=== PATIENT | male | born 1970 | race Caucasian/White ===

== ENCOUNTER 2019-09-28 21:25 | Observation (INO) ==
[2019-09-28 21:51] LABS: Anion Gap 9.8 mEq/L (5-15); Basophils # 0.1 K/mm3 (0-0.2); Basophils % 0.6 % (0.1-2.0); Blood Urea Nitrogen 17 mg/dL (7-18); Calcium 8.7 mg/dL (8.5-10.1); Carbon Dioxide 30 mmol/L (21.0-32.0); Chloride 103 mmol/L (98-107); Eosinophils # 0.5 K/mm3 (0.0-0.4); Glucose 118 mg/dL (74-106); Hematocrit 49.6 % (42.0-52.0); Hemoglobin 16.8 g/dL (14.1-18.0); Lymphocytes # 2.6 K/mm3 (0.7-4.5); Lymphocytes % 20.8 % (10-50); Mean Corpuscular HGB Conc 33.9 g/dL (31.8-35.4); Mean Corpuscular Volume 94.3 fl (80-94); Mean Platelet Volume 8.3 fl (7.4-10.4); Monocytes # 0.7 K/mm3 (0.1-1.0); Monocytes % 5.7 % (1.7-9.3); Neutrophils # 8.6 K/mm3 (1.8-7.8); Neutrophils % 68.9 % (37.0-80.0); Platelet Count 253 K/mm3 (142-424); Red Blood Count 5.26 M/mm3 (4.60-6.20); Red Cell Distribution Width 12.7 % (11.5-17.5); Sodium 139 mmol/L (136-145); White Blood Count 12.5 K/mm3 (4.8-10.8)
--- NOTE | 2019-09-28 22:31 | Emergency Department Note ---
ED Disposition Clinical Impression: Chest pain Qualifiers: Chest pain type: precordial pain Qualified Code(s): R07.2 - Precordial pain Obesity Qualifiers: Obesity type: due to excess calories Obesity classification: adult class 3 (BMI >= 40) Serious obesity comorbidity presence: with serious comorbidity Body mass index: BMI 40.0-44.9 Qualified Code(s): E66.01 - Morbid (severe) obesity due to excess calories; Z68.41 - Body mass index (BMI) 40.0-44.9, adult Disposition: Admitted as Observation Condition on Discharge: Good Referrals: Provider,Referral, [Primary Care Provider] - - Critical Care Critical Care Time: No Attestation: On 09/28/19, the high probability of a clinically significant, sudden or life threatening deterioration of the following system(s) required my full and direct attention, intervention and personal management. The time I documented below is in addition to time spent performing reported procedures but includes the following listed in this critical care notation. Medical Decision Making - Medical Records Medical records reviewed: Yes: I reviewed the patient's medical records. - Dashawn Inquiry Pt receiving controlled substance: No Vital Signs: 09/28/19 21:26 09/28/19 21:56 Temperature 97.8 F Temperature Source Oral Pulse Rate [Right Brachial] 74 76 Respiratory Rate 20 20 Blood Pressure [Right Arm] 139/82 121/64 Blood Pressure Mean [Right Arm] 101 83 Blood Pressure Source [Right Arm] Automatic Cuff Automatic Cuff Blood Pressure Position [Right Arm] Supine Sitting 02 Sat by Pulse Oximetry 95 96 Oxygen Delivery Method Room Air Room Air - Lab Data Lab results reviewed: Yes: I reviewed the patient's lab results. Lab Results 09/28/19 21:25: WBC 12.5 H, RBC 5.26, Hgb 16.8, Hct 49.6, MCV 94.3 H, MCH 31.9 H , MCHC 33.9, RDW 12.7, Plt Count 253, MPV 8.3, Neut % (Auto) 68.9, Lymph % (Auto) 20.8, Harney % (Auto) 5.7, Eos % (Auto) 4.0, Baso % (Auto) 0.6, Neut # (Auto) 8.6 H, Lymph # (Auto) 2.6, Harney # (Auto) 0.7, Eos # (Auto) 0.5 H, Baso # (Auto) 0.1 09/28/19 21:25: Sodium 139, Potassium 3.8, Chloride 103, Carbon Dioxide 30, Anion Gap 9.8, BUN 17, Creatinine 1.03, Estimated Creat Clear 84, Estimated GFR 77, Est GFR ( Amer) 93, Glucose 118 H, Calcium 8.7, Troponin I < 0.02 Result diagrams: 09/28/19 21:25 09/28/19 21:25 Orders (Tests/Meds): ED MEDICATIONS Generic Name Dose Route Start Last Admin Trade Name Freq PRN Reason Stop Dose Admin Sodium Chloride 1,000 mls @ 999 mls/hr 09/28/19 22:00 09/28/19 21:54 Sod Chlor 0.9% 1000ml Bag IV 09/28/19 23:00 999 mls/hr .Q1H1M EDWINA Administration Discontinued Medications Generic Name Dose Route Start Last Admin Trade Name Freq PRN Reason Stop Dose Admin Aspirin 324 mg 09/28/19 21:33 09/28/19 21:38 Aspirin 81mg Chewable Tablet PO 09/28/19 21:34 324 mg ONCE ONE Administration Nitroglycerin 0.4 mg 09/28/19 21:33 09/28/19 21:38 Nitrostat 0.4mg Sl Tablet SL 09/28/19 21:34 0.4 mg ONCE ONE Administration Nitroglycerin 1 gm 09/28/19 22:29 09/28/19 22:30 Nitroglycerin 1 Inch Oint Udp TD 09/28/19 22:30 1 gm ONCE ONE Administration ORDERS Category Date Time Status XR chest 2V Stat Exams 09/28/19 21:33 Taken Hemoglobin A1C Stat Lab 09/28/19 21:25 Received Troponin I Q3H Lab 09/29/19 00:45 Ordered Troponin I Q3H Lab 09/29/19 03:45 Ordered ECG Request by /Grace Stat Y 09/28/19 21:33 Ordered - Radiology Data #1 Image(s): Chest Image Reviewed: Yes I reviewed the patient's radiology image Preliminary Findings: Abnormal (cm) - ECG Data Tracing #1 Normal Sinus Rhythm: Yes Ischemic changes: non-specific ST-T wave changes Chest Pain HPI - General Chief Complaint: Chest Pain Stated Complaint: CHEST PAIN Time Seen by Provider: 09/28/19 22:29 Mode of Arrival: Ambulatory Source of Information: Patient, Spouse, Medical Record Limitations: No Limitations Description of Symptoms (Recalled from ER Triage Doc. by RN): AGUS PRESENTS TO TX 7 C/O CHEST PAIN THAT STARTED AROUND 2100. STATES PAIN IS IN THE CENTER OF HIS CHEST AND DOES NOT RADIATE ANYWHERE. REPORTS PAIN INITIALLY 4/10, BUT DOWN TO 2/10 UPON ARRIVAL. DENIES CARDIAC HISTORY. - History of Present Illness HPI narrative: pt with new onset of midsternal chest pain which occurred at rest and lasted about 20 min - different than gerd pain MD complaint: chest pain indicative of cardiac Onset (ago): hour(s) Duration: now resolved Activity at onset: during rest Pain location: substernal Quality: tightness Relieving factors: nitroglycerin Risk Factors for CAD: Family Hx of CAD Treatments prior to or on arrival for Cardiac Chest Pain: none - RICARDO Score for Non-Stemi Age of Patient: 40-49 years old Heart Rate: 70-89 bpm Systolic Blood Pressure: 120-139 mmhg Serum Creatinine: 0.80-1.19 mg/dl CHF Killip Class: I-No CHF Other Risk Factors: None Non-Stemi Risk Score: 75 - Related Data Home Medications Medication Instructions Recorded Confirmed No Known Home Medications 09/28/19 09/28/19 Allergies Allergy/AdvReac Type Severity Reaction Status Date / Time No Known Allergies Allergy Verified 11/25/18 09:32 [facility] History - Hepatitis A Screen Drug use history?: No High risk sexual behaviors?: No History of sexually transmitted infection?: No Currently employed?: No Childcare worker?: No Do you have indoor plumbing?: Yes Do you have electricity?: Yes Attestation statement:: This patient has been screened for Hepatitis A risk factors. I have reviewed the patient's past medical history: Yes - Social History Smoking Status: Never smoker Alcohol Intake: never Substance Use Type: denies use Occupational Status: employed Housing: house Household Members: spouse ROS Obtained: Yes All systems reviewed & no additional complaints - Constitutional Constitutional: Denies fever(s) - Eyes Eyes: Denies change in vision - ENT Ears, Nose, Mouth, and Throat: Denies sore throat - Cardiovascular Cardiovascular: Reports chest pain, Denies dyspnea - Respiratory Respiratory: No cough - Gastrointestinal Gastrointestingal: Denies: abdominal pain - Genitourinary Male Genitourinary: Denies hematuria - Musculoskeletal Musculoskeletal: Denies joint pain, Denies joint swelling - Integumentary/Breasts Skin/Breast: Denies rash - Neurologic Neurologic: Denies seizure-like activity Physical Exam - General General appearance: alert - Head Head exam: normocephalic - Eye Eye exam: Present: PERRL, EOMI - ENT ENT exam: Present: mucous membranes moist - Neck Neck exam: Present: trachea midline - Respiratory Respiratory exam: Present: normal lung sounds bilaterally. Absent: respiratory distress - Cardiovascular Cardiovascular exam: Present: regular rate, systolic murmur - Abdominal Exam Abdominal exam: Present: soft. Absent: tenderness - Extremities Exam Extremities exam: Present: full ROM - Neurological Exam Neurological exam: Present: alert, oriented X3, CN II-XII intact - Psychiatric Psychiatric exam: Present: normal affect - Skin Skin exam: Absent: rash
[2019-09-29 04:21] LABS: Basophils # 0.1 K/mm3 (0-0.2); Basophils % 0.5 % (0.1-2.0); Eosinophils # 0.4 K/mm3 (0.0-0.4); Eosinophils % 4.2 % (0.1-12.0); Hematocrit 47.4 % (42.0-52.0); Hemoglobin 15.6 g/dL (14.1-18.0); Lymphocytes # 2.3 K/mm3 (0.7-4.5); Lymphocytes % 24.5 % (10-50); Mean Corpuscular HGB Conc 32.9 g/dL (31.8-35.4); Mean Corpuscular Volume 95.6 fl (80-94); Mean Platelet Volume 8.1 fl (7.4-10.4); Monocytes # 0.6 K/mm3 (0.1-1.0); Monocytes % 6.4 % (1.7-9.3); Neutrophils % 64.3 % (37.0-80.0); Platelet Count 233 K/mm3 (142-424); Red Blood Count 4.96 M/mm3 (4.60-6.20); Red Cell Distribution Width 12.7 % (11.5-17.5); White Blood Count 9.3 K/mm3 (4.8-10.8)
[2019-09-29 04:30] LABS: Anion Gap 11.1 mEq/L (5-15); Calcium 7.9 mg/dL (8.5-10.1); Chol/HDL Ratio 4.7 (1-3.5)
--- NOTE | 2019-09-29 07:25 | Pharmacy Consult Notes ---
[facility] Pharmacy VTE Monitoring - Patient Demographics Admission date: 09/28/19 Report Date: 09/29/19 Time: 07:25 Allergies/Adverse Reactions: Patient Allergies No Known Allergies Allergy (Verified 11/25/18 09:32) Height: 1.73 m Weight: 125.191 kg Patient Problems: Current Active Problems Chest pain (Acute) Obesity (Acute) - VTE Risk Labs: VTE Related Lab Results Hgb 15.6 g/dL (14.1-18.0) 09/29/19 03:55 Hct 47.4 % (42.0-52.0) 09/29/19 03:55 Plt Count 233 K/mm3 (142-424) 09/29/19 03:55 BUN 16 mg/dL (7-18) 09/29/19 03:55 Creatinine 1.04 mg/dL (0.70-1.30) 09/29/19 03:55 Estimated Creat Clear 83 mL/min (50-200) 09/29/19 03:55 Was VTE Risk Assessment Performed: Yes VTE Score: 2 VTE Risk Level: Low Risk Clinical Trial Participant: No - Prophylaxis VTE Prophylaxis Ordered?: Yes Types of VTE Prophylaxis: TEDS Knee High
--- NOTE | 2019-09-29 09:25 | Consult Report ---
History of Present Illness Consult date: 09/29/19 Requesting physician: Rex Lord Consult reason: chest pain Chief complaint: Chest pain History of present illness: This is a 49-year-old gentleman who presented to the hospital with complaints of chest pain. The patient reports that he has had chest pain intermittently in the past but nothing as severe as yesterday. He states that he was having a pressure sensation in the substernal aspect of his chest. He states that the pain itself really did not radiate but he felt heavy from about the substernal area of his chest all the way up to his head. The patient states that the chest pressure was a 5 out of 10 at the worst. It was associated with nausea. He denies any associated shortness of breath or diaphoresis. The patient states that his symptoms lasted for approximately 30 minutes or more before he decided to come into the emergency department. The patient states that in the past none of his episodes of chest pain have ever lasted that long. He states that usually last a few minutes and then resolved. He states that he does have a history of GERD as well and this pain felt completely different than that. He denies any fever, chills, vomiting, diarrhea, PND, orthopnea, shortness of breath or edema. Nothing worsened his chest pressure and it did not improve until he was given aspirin and nitroglycerin here in the emergency department. This morning he is currently chest pain-free. The patient denies hypertension, hyperlipidemia and diabetes. He has never smoked. He denies a family history of heart disease. [facility] History I have reviewed the patient's past medical history: Yes Medical History: Denies:: Cancer, Diabetes Mellitus Type 1, Diabetes Mellitus Type 2, MRSA *Have you ever received a pneumonia vaccine?: No *Have you received a flu vaccine this season?: Yes Other Surgeries: Yes: Colonoscopy, EGD, Hernia Repair Amputation: No - *Social History Educational Level: Completed High School Smoking Status: Never smoker Alcohol Intake: current Alcohol Intake Frequency:: holidays/special occasions only Substance Use Type: denies use *Occupational Status:: employed Housing: house Household Members: spouse *Travel in the last 8 weeks: Inside the [facility] Family Hx:: Cancer, Kidney Disease, Thyroid Disorder Meds Home Medications Medication Instructions Recorded Confirmed Type No Known Home Medications 09/28/19 09/28/19 History Allergies Allergy/AdvReac Type Severity Reaction Status Date / Time No Known Allergies Allergy Verified 11/25/18 09:32 Review of Systems - Review of Systems Review of systems:: pertinent systems reviewed and negative unless documented below - *Cardiovascular Reports chest pain, Reports chest pain at rest, Reports chest pain with activity - *Gastrointestinal Reports nausea - *Neurologic Denies seizure-like activity Exam Vital signs and Labs for Last 24 Hours: Temp Pulse Resp BP Pulse Ox 98.3 F 70 19 111/61 98 09/29/19 07:39 09/29/19 07:39 09/29/19 07:39 09/29/19 07:39 09/29/19 07:39 Laboratory Results - last 24 hr 09/28/19 21:25: WBC 12.5 H, RBC 5.26, Hgb 16.8, Hct 49.6, MCV 94.3 H, MCH 31.9 H , MCHC 33.9, RDW 12.7, Plt Count 253, MPV 8.3, Neut % (Auto) 68.9, Lymph % (Auto) 20.8, Hayes % (Auto) 5.7, Eos % (Auto) 4.0, Baso % (Auto) 0.6, Neut # (Auto) 8.6 H, Lymph # (Auto) 2.6, Hayes # (Auto) 0.7, Eos # (Auto) 0.5 H, Baso # (Auto) 0.1 09/28/19 21:25: Sodium 139, Potassium 3.8, Chloride 103, Carbon Dioxide 30, Anion Gap 9.8, BUN 17, Creatinine 1.03, Estimated Creat Clear 84, Estimated GFR 77, Est GFR ( Amer) 93, Glucose 118 H, Calcium 8.7, Troponin I < 0.02 09/28/19 21:25: Hemoglobin A1c 5.6 09/29/19 00:40: Troponin I < 0.02 09/29/19 03:55: WBC 9.3 D, RBC 4.96, Hgb 15.6, Hct 47.4, MCV 95.6 H, MCH 31.5 H , MCHC 32.9, RDW 12.7, Plt Count 233, MPV 8.1, Neut % (Auto) 64.3, Lymph % (Auto) 24.5, Hayes % (Auto) 6.4, Eos % (Auto) 4.2, Baso % (Auto) 0.5, Neut # (Auto) 6.0, Lymph # (Auto) 2.3, Hayes # (Auto) 0.6, Eos # (Auto) 0.4, Baso # (Auto) 0.1 09/29/19 03:55: Sodium 141, Potassium 4.1, Chloride 106, Carbon Dioxide 28, Anion Gap 11.1, BUN 16, Creatinine 1.04, Estimated Creat Clear 83, Estimated GFR 76, Est GFR ( Amer) 92, Glucose 103, Calcium 7.9 L, Magnesium 1.8, Triglycerides 83, Cholesterol 142, LDL Cholesterol 95, VLDL Cholesterol 17, HDL Cholesterol 30, Cholesterol/HDL Ratio 4.7 H 09/29/19 03:55: Troponin I < 0.02 I & O for Last 24 hours: Intake & Output 09/26/19 09/27/19 09/28/19 09/29/19 23:59 23:59 23:59 23:59 Weight 275 lb 276 lb Narrative: EKG is sinus rhythm with a rate of 72. - Constitutional no acute distress, morbidly obese - *Routine HEENT Exam Head: Present: normocephalic, atraumatic Eye: Present: EOMI, PERRL ENT: Present: mucous membranes moist - *Routine Neck Exam Present: supple, full ROM, normal carotid upstroke. Absent: JVD, carotid bruit, lymphadenopathy - *Routine Respiratory Exam Present: CTA bilaterally - *Routine Cardiovascular Exam Present: RRR, Normal S1, Normal S2. Absent: murmur - *Routine Abdominal Exam Present: soft, normoactive bowel sounds. Absent: tenderness, distended - *Routine Extremities Exam Present: full ROM, pulses intact, normal capillary refill. Absent: cyanosis, clubbing, edema - *Routine Skin Exam Present: intact, warm. Absent: erythema, rash - *Routine Neurological Exam Present: alert, oriented X3, CN II-XII intact. Absent: sensory deficit, motor deficit - Routine Psychiatric Exam Present: normal affect, normal thought process - Detailed Eye Exam Eyelids: Left normal inspection Assessment and Plan (1) Nausea Current visit: Yes Status: Acute Category: Medical Code(s): R11.0 - Nausea (2) Morbidly obese Current visit: Yes Status: Acute Category: Medical Code(s): E66.01 - Morbid (severe) obesity due to excess calories (3) Chest pain Current visit: Yes Status: Acute Qualifiers: Chest pain type: precordial pain Qualified Code(s): R07.2 - Precordial pain Category: Medical Code(s): R07.9 - Chest pain, unspecified - Assessment and plan all Dx Assessment and Plan for all problems:: Plan: 1. The patient was admitted to the hospital with chest pain. He has ruled out for an LA with negative troponins. The patient's chest pain did resolve with aspirin and nitroglycerin. He has been having the chest pain intermittently for quite some time but it significantly worsened yesterday and that is why he came to the emergency department. We will set the patient up for a GXT Myoview stress test to rule out ischemia. 2. His echocardiogram is currently pending. 3. His blood pressure is excellent. 4. His LDL goal is less than 100. His LDL is 95. 5. Weight loss is highly encouraged and advised. 6. Aspirin 81 mg daily. 7. Further recommendations will be made pending the patient's response to treatment and the results of his Myoview stress test and echocardiogram today. Thank you for the opportunity to help participate in the care of this patient.
--- NOTE | 2019-09-29 18:05 | History & Physical Report ---
*Admission Date: 09/28/19 *Chief complaint: chest pain *History of present illness: 49-year-old male presented to the ED with complaints of chest pain for 30 mins. Patient reports that he has had chest pain intermittently in the past but nothing as severe as yesterday. He states that he was having a pressure sensation in the substernal aspect of his chest. The patient states that the chest pressure was a 5 out of 10 at the worst and associated with nausea. He denies any fever, chills, vomiting, diarrhea, PND, orthopnea, shortness of breath or edema. Nothing worsened his chest pressure and it did not improve until he was given aspirin and nitroglycerin here in the emergency department. Patient admitted and cardiac work up with cardiology consult. [facility] History I have reviewed the patient's past medical history: Yes Medical History: Denies:: Cancer, Diabetes Mellitus Type 1, Diabetes Mellitus Type 2, MRSA *Have you ever received a pneumonia vaccine?: No *Have you received a flu vaccine this season?: Yes Other Surgeries: Yes: Colonoscopy, EGD, Hernia Repair Amputation: No - *Social History Educational Level: Completed High School Smoking Status: Never smoker Alcohol Intake: current Alcohol Intake Frequency:: holidays/special occasions only Substance Use Type: denies use *Occupational Status:: employed Housing: house Household Members: spouse *Travel in the last 8 weeks: Inside the [place] Family Hx:: Cancer, Kidney Disease, Thyroid Disorder Review of Systems - Review of Systems Review of systems:: pertinent systems reviewed and negative unless documented below - Constitutional Denies fever(s) - Eyes Denies change in vision - ENT Denies change in voice - *Cardiovascular Reports chest pain, Reports chest pain at rest, Reports chest pain with activity, Denies shortness of breath with activity - *Respiratory Denies chest congestion, Denies shortness of breath - *Gastrointestinal Reports nausea, Denies vomiting - *Genitourinary Denies urinary frequency - *Musculoskeletal Denies body aches, Denies neck pain - Integumentary/Breasts Denies rash - *Neurologic Denies dizziness, Denies seizure-like activity - Psychiatric Denies anxiety - Endocrine Denies flushing - Hematologic/Lymphatic Denies enlarged lymph nodes - Allergic/Immunologic Denies itchy eyes Meds Home Medications Medication Instructions Recorded Confirmed Type No Known Home Medications 09/28/19 09/28/19 History Allergies Allergy/AdvReac Type Severity Reaction Status Date / Time No Known Allergies Allergy Verified 11/25/18 09:32 Exam Vital signs and Labs for Last 24 Hours: Temp Pulse Resp BP Pulse Ox 98.7 F 89 17 121/70 95 09/29/19 15:43 09/29/19 15:43 09/29/19 15:43 09/29/19 15:43 09/29/19 15:43 Laboratory Results - last 24 hr 09/28/19 21:25: WBC 12.5 H, RBC 5.26, Hgb 16.8, Hct 49.6, MCV 94.3 H, MCH 31.9 H , MCHC 33.9, RDW 12.7, Plt Count 253, MPV 8.3, Neut % (Auto) 68.9, Lymph % (Auto) 20.8, Richardson % (Auto) 5.7, Eos % (Auto) 4.0, Baso % (Auto) 0.6, Neut # (Auto) 8.6 H, Lymph # (Auto) 2.6, Richardson # (Auto) 0.7, Eos # (Auto) 0.5 H, Baso # (Auto) 0.1 09/28/19 21:25: Sodium 139, Potassium 3.8, Chloride 103, Carbon Dioxide 30, Anio n Gap 9.8, BUN 17, Creatinine 1.03, Estimated Creat Clear 84, Estimated GFR 77, Est GFR ( Amer) 93, Glucose 118 H, Calcium 8.7, Troponin I < 0.02 09/28/19 21:25: Hemoglobin A1c 5.6 09/29/19 00:40: Troponin I < 0.02 09/29/19 03:55: WBC 9.3 D, RBC 4.96, Hgb 15.6, Hct 47.4, MCV 95.6 H, MCH 31.5 H , MCHC 32.9, RDW 12.7, Plt Count 233, MPV 8.1, Neut % (Auto) 64.3, Lymph % (Auto) 24.5, Richardson % (Auto) 6.4, Eos % (Auto) 4.2, Baso % (Auto) 0.5, Neut # (Auto) 6.0, Lymph # (Auto) 2.3, Richardson # (Auto) 0.6, Eos # (Auto) 0.4, Baso # (Auto) 0.1 09/29/19 03:55: Sodium 141, Potassium 4.1, Chloride 106, Carbon Dioxide 28, Anion Gap 11.1, BUN 16, Creatinine 1.04, Estimated Creat Clear 83, Estimated GFR 76, Est GFR ( Amer) 92, Glucose 103, Calcium 7.9 L, Magnesium 1.8, Triglycerides 83, Cholesterol 142, LDL Cholesterol 95, VLDL Cholesterol 17, HDL Cholesterol 30, Cholesterol/HDL Ratio 4.7 H 09/29/19 03:55: Troponin I < 0.02 I & O for Last 24 hours: Intake & Output 09/27/19 09/28/19 09/29/19 09/30/19 11:59 11:59 11:59 11:59 Intake Total 752 / 752 Balance 752 / 752 Weight 276 lb 275 lb 15.982 oz - Constitutional no acute distress - *Routine HEENT Exam Head: Present: normocephalic Eye: Present: PERRL ENT: Present: mucous membranes moist - *Routine Neck Exam Present: supple. Absent: lymphadenopathy - *Routine Respiratory Exam Present: CTA bilaterally - *Routine Cardiovascular Exam Present: RRR - *Routine Abdominal Exam Present: soft, normoactive bowel sounds. Absent: tenderness - *Routine Extremities Exam Present: full ROM. Absent: cyanosis, clubbing, edema - *Routine Skin Exam Present: warm. Absent: rash - *Routine Neurological Exam Present: alert, oriented X3 - Routine Psychiatric Exam Present: normal affect Assessment and Plan (1) Nausea Current visit: Yes Status: Acute Category: Medical Code(s): R11.0 - Nausea (2) Morbidly obese Current visit: Yes Status: Acute Category: Medical Code(s): E66.01 - Morbid (severe) obesity due to excess calories (3) Chest pain Current visit: Yes Status: Acute Qualifiers: Chest pain type: precordial pain Qualified Code(s): R07.2 - Precordial pain Category: Medical Code(s): R07.9 - Chest pain, unspecified - Assessment and plan all Dx Assessment and Plan for all problems:: rounded with Dr Lord all orders per lawson
--- NOTE | 2019-09-30 08:17 | Progress Note ---
Subjective Date: 09/30/19 Time: 08:14 Principal diagnosis: chest pain Interval history: 49-year-old white male admitted for chest pain underwent stress testing yesterday showing ischemia in the apex with normal ejection fraction. Patient has had no chest pain overnight. Discussed results of stress test and plans for cardiac catheterization with patient and . Patient both agree to proceed in this fashion. Exam Vital signs and Labs for Last 24 Hours: Temp Pulse Resp BP Pulse Ox 98.5 F 85 15 126/68 95 09/30/19 04:00 09/30/19 04:00 09/30/19 04:00 09/30/19 04:00 09/30/19 04:00 I & O for Last 24 hours: Intake & Output 09/27/19 09/28/19 09/29/19 09/30/19 11:59 11:59 11:59 11:59 Intake Total 1112 / 1112 Output Total 800 / 800 Balance 312 / 312 Weight 276 lb 273 lb 2 oz - *Routine Respiratory Exam Present: CTA bilaterally. Absent: accessory muscle use, rales, rhonchi, wheezes - *Routine Cardiovascular Exam Present: RRR. Absent: murmur, gallop, rubs - *Routine Extremities Exam Absent: edema, calf tenderness - *Routine Neurological Exam Present: alert, oriented X3, moving all extremities Progress Note: A&P (1) Chest pain Status: Acute Current Visit: Yes (2) Nausea Status: Acute Current Visit: Yes (3) Morbidly obese Status: Acute Current Visit: Yes Assessment and Plan for All Diagnoses:: 1. Plan to proceed with left heart catheterization today. 2. Further recommendations to follow.
--- NOTE | 2019-09-30 09:17 | Electrocardiograph Report ---
APPROVED REPORT Exam: Resting ECG HR:72 bpm ECG Measurements Heart Rate 72 AXES MT 168 P 78 QRSd 90 QRS -27 QT 376 T52 QTc 411 <Conclusion> Normal sinus rhythm Low voltage QRS Borderline ECG Electronically signed by : Matias Blue, 09/30/2019 09:17:25
--- NOTE | 2019-09-30 11:47 | Discharge Summary ---
General - General Admission date:: 09/28/19 Discharge date: 09/30/19 HPI HPI: 49-year-old male presented to the ED with complaints of chest pain for 30 mins. Patient reports that he has had chest pain intermittently in the past but nothing as severe as yesterday. He states that he was having a pressure sensation in the substernal aspect of his chest. The patient states that the chest pressure was a 5 out of 10 at the worst and associated with nausea. He denies any fever, chills, vomiting, diarrhea, PND, orthopnea, shortness of breath or edema. Nothing worsened his chest pressure and it did not improve until he was given aspirin and nitroglycerin here in the emergency department. Patient admitted and cardiac work up with cardiology consult (Per Ibrahima LAGUNAS). Hospital Course Hospital Course: 49-year-old male patient sitting up in bed this morning respirations easy even, denies any chest pain through the night. Informed he will have a cardiac catheterization today and will discuss results after procedure. 49-year-old male presented to the ED with complaints of chest pain for 30 mins. Patient reports that he has had chest pain intermittently in the past but nothing as severe as yesterday. He states that he was having a pressure sensation in the substernal aspect of his chest. The patient states that the chest pressure was a 5 out of 10 at the worst and associated with nausea. He denies any fever, chills, vomiting, diarrhea, PND, orthopnea, shortness of breath or edema. Nothing worsened his chest pressure and it did not improve until he was given aspirin and nitroglycerin here in the emergency department. Patient admitted and cardiac work up with cardiology consult. 09/29 Strees Test: Conclusion: Normal EF of 62% Ischemic changes in the apex Electronically signed by : Jose 09/30 Card Cath: IMPRESSION Mild luminal irregularities combined with slow flow down the LAD all consistent with endothelial dysfunction likely stemming from diastolic dysfunction as evidenced by moderate to severely elevated LVEDP Normal ejection fraction Elevated LVEDP PLAN 1. Treatment of diastolic dysfunction with loop diuretics 2. Recommend sleep study 3. Risk factor modification Electronically signed by : Dr. Drummond Cards Recommendations: Left heart cath shows mild luminal irregularities with elevated left ventricular end-diastolic pressure consistent with diastolic dysfunction. Okay for discharge home from cardiology standpoint Medical recommendations Lasix 40 mg daily Aldactone 25 mg daily Atorvastatin 40 mg daily Aspirin 81 mg daily Follow-up in the office in 2 weeks. Objective Vital signs: Temp Pulse Resp BP Pulse Ox 98.2 F 82 18 109/82 L 96 09/30/19 08:00 09/30/19 10:25 09/30/19 10:25 09/30/19 10:25 09/30/19 10:25 no acute distress - *Routine HEENT Exam Head: Present: normocephalic, atraumatic. Absent: tenderness of temporal artery Eye: Present: EOMI, PERRL, normal accommodation. Absent: periorbital tenderness ENT: Present: mucous membranes moist. Absent: sinus tenderness - *Routine Neck Exam Present: full ROM, trachea midline. Absent: JVD, tracheal deviation - *Routine Respiratory Exam Present: accessory muscle use, CTA bilaterally. Absent: crackles - *Routine Cardiovascular Exam Present: RRR - *Routine Abdominal Exam Present: soft, normoactive bowel sounds. Absent: tenderness, firm - *Routine Extremities Exam Present: full ROM, pulses intact. Absent: cyanosis, calf tenderness - Routine Back/Spine/Pelvis Exam Back/Spine: Present: full ROM. Absent: CVA tenderness - *Routine Skin Exam Present: intact. Absent: cyanosis, erythema - *Routine Neurological Exam Present: alert, oriented X3, CN II-XII intact, altered mental status. Absent: fasciculations - Routine Psychiatric Exam Absent: suicidal ideation, homicidal ideation Results - Additional Comments Rounded w/ Dr. Lord, all orders per Dr. Lord Will D/H Home today F/U in office 2 weerks Cards Recommends: Left heart cath shows mild luminal irregularities with elevated left ventricular end-diastolic pressure consistent with diastolic dysfunction. Okay for discharge home from cardiology standpoint Medical recommendations Lasix 40 mg daily Aldactone 25 mg daily Atorvastatin 40 mg daily Aspirin 81 mg daily Follow-up in the office in 2 weeks. DS: Diagnosis - Discharge Diagnosis (1) Nausea Status: Acute (2) Morbidly obese Status: Acute (3) Chest pain Status: Acute Discharge Plan - Patient Discharge Instructions ACTIVITY: Continue current activity DIET: continue same diet Patient Instructions: DI for Obesity -- Adult, DI for Chest Pain - Follow up Plan Follow up with: Rex Lord MD [Emergency Provider] - 2 weeks Devendra Drummond MD [Staff Physician] - 2 weeks Disposition: Home, Self-Fci Medications: Home Medications Medication Instructions Recorded Confirmed Type No Known Home Medications 09/28/19 09/28/19 History Aspirin [Aspirin 81mg EC Tab] 81 mg PO DAILY 30 Days tablet. 09/30/19 Rx Atorvastatin Calcium [Lipitor 40mg 40 mg PO HS 30 Days tab 09/30/19 Rx Tablet] Furosemide [Lasix 40mg tablet] 40 mg PO DAILY 30 Days tab 09/30/19 Rx Spironolactone [Aldactone 25mg 25 mg PO DAILY 30 Days tab 09/30/19 Rx Tab] Prescriptions/Medication Reconciliation: New Spironolactone [Aldactone 25mg Tab] 25 mg PO DAILY 30 Days tab Aspirin [Aspirin 81mg EC Tab] 81 mg PO DAILY 30 Days tablet. Atorvastatin Calcium [Lipitor 40mg Tablet] 40 mg PO HS 30 Days tab Furosemide [Lasix 40mg tablet] 40 mg PO DAILY 30 Days tab Continued No Known Home Medications - Problem Reconciliation Problems Reviewed?: Yes
--- NOTE | 2019-09-30 15:25 | Cardiology Report ---
APPROVED REPORT Exam: Exercise Treadmill Technologist: josue stanley, Ht: 5 ft 8 in Wt: 278 lbs BSA: 2.35 m2 HR: 74 bpm BP: 134/84 mmHg Indications: CP Medical History Allergies: No known drug allergies Stress Test Details Test: Carlos HR Resting HR: 95 bpmMax Heart Rate (APMHR): 171 bpm Max HR Achieved: 173 bpmTarget HR (85% APMHR): 145 bpm % of APMHR: 101 Recovery HR: 115 bpm BP Resting BP: 127/72 mmHg Max BP: 164/68 mmHg Recovery BP: 143.0/74.0 mmHg ECG Resting ECG: NSR, Low voltage QRS. Clinical Reason for Termination: SOA, Leg fatigue Exercise duration: 07:45 min Highest Stage Achieved: Exercise capacity: 10.1 METs Stress ECG Conclusion No CP. Occ PAC and PVC. Normal ST response to exercise. Normal GXT. Images reported seperately. Test Summary REST.......Sitting REST.......Standing REST04:570.00.095.127/ 72.. Stage 101:0010.01.7120.... Stage 102:0010.01.7126.... Stage 103:0010.01.7127.158/ 75.. Stage 201:0012.02.5132.... Stage 202:0012.02.5136.... Stage 203:0012.02.5144.162/ 74.. Stage 3.......Cardiolite injected Stage 301:0014.03.4155.... Stage 301:4514.03.4158...Stop exercise at 07:45 [id number]:000.00.0126.164/ 68.. [id number]:000.00.0112.164/ 68.. [id number]:000.00.0113.143/ 74.. [id number]:000.00.0109.135/ 82.. [id number]:000.00.0112.131/ 79.. [id number]:200.00.0115.131/ 79.. Electronically signed by : Eren Villagran, 09/30/2019 15:24:49
--- NOTE | 2019-09-30 15:43 | Cardiology Report ---
APPROVED REPORT EXAM: Comprehensive 2D, Doppler, and color-flow Echocardiogram Master Naval Parachutist: Maribel Avitia RT(R) Ht: 5 ft 8 in Wt: 278lbs BSA: 2.35 BP: 121/64 mmHg Indications: Chest Pain 2D Dimensions LVOT 2.27 cm (M/F) 1.5-2.5 M-Mode Dimensions RVDd 3.57 cm (0.9-2.6)LVDd 5.15 cm (3.5-5.7) LVDs 4.21 cm (3.5-5.7)IVSd 1.02 cm (0.6-1.1) PWd 0.79 cm (0.6-1.1)EF (Teich) 37.60% FS 18.30% EDV (Teich) 126.60 mL ESV (Teich) 79.00 mL LV Diastology E/A Ratio 1.03 Mitral Valve MV A Velocity 53.00 (40-130 cm/s) Left Ventricle Left atrium is normal size, left ventricle is normal size, there is no concentric left ventricular hypertrophy, visually estimated ejection fraction 55% with no regional wall motion abnormality. Diastolic parameters are within normal range. Right Ventricle Right atrium and right ventricular normal size and contractility. Aortic Valve Aortic valve is grossly normal, there is no aortic stenosis or aortic insufficiency. Mitral Valve Mitral valve is grossly normal, there is no mitral stenosis, there is mild mitral regurgitation. Tricuspid Valve Tricuspid valve is grossly normal, there is mild tricuspid regurgitation. Tricuspid regurgitation jet velocity is inadequate for calculation of the right ventricular systolic pressure. Pulmonic Valve Pulmonic valve is poorly visualized. Great Vessels Aortic root is normal size. Pericardium No significant pericardial effusion noted Conclusion 1. Normal left ventricular size, preserved left ventricular systolic function, visually estimated ejection fraction 55% with no regional wall motion abnormality. Diastolic parameters are within normal range. 2. Mild mitral and tricuspid regurgitation. 3. No significant pericardial effusion noted. Electronically signed by : Eren Villagran, 09/30/2019 15:41:55
== END 2019-09-30 16:22 | disposition home or self-care (01) ==
LOC: ER 21:25 → 2ND 21:25
PROVIDERS: ADMIT Emergency Medicine; ATTEND Emergency Medicine
CPT/HCPCS: 36415; 71020; 71046; 78452; 80048; 80061; 83036; 83735; 84484; 85025; 93005; 93017; 93306; 93458; 96365; 99152; 99284; A9502; C1725; C1760; C1769; G0378; J1644; Q9967

== ENCOUNTER 2023-12-28 08:47 | Emergency (ER) | payer BC, SELFPAY ==
[2023-12-28 09:05] VITALS: BP 113/74; PULSE 86; RESP 20; TEMP 38.2; O2SAT 97; BMI 39.8
--- NOTE | 2023-12-28 09:13 | ED_ITS ---
Discharge Plan Disposition Patient Disposition: Home, Self-Care Condition: Good Prescriptions Prescriptions: No Action spironolactone 25 mg tablet 25 mg PO DAILY Qty: 30 2RF atorvastatin 40 mg tablet 40 mg PO HS Qty: 30 2RF furosemide 40 mg tablet 40 mg PO DAILY Qty: 30 2RF aspirin 81 mg tablet,delayed release (DR/EC) See Rx Instructions .ROUTE .COMPLEX Qty: 90 0RF Dose Instruction: TAKE 1 TABLET BY MOUTH EVERY DAY Rx Instructions: TAKE 1 TABLET BY MOUTH EVERY DAY Referrals Follow up/Referrals: Liv Carlos MD [Primary Care Provider] - See instructions Activity Restrictions/Add. Instructions Additional Instructions/Restrictions: *Monitor Temp, Over the counter Motrin or Tylenol as directed/as needed Tylenol every 4 hours and Motrin every 6 hours (as long as your family doctor has told you that you can take it) for fever or pain. and straight to ER if unable to lower temp less than 101.0 after medication given *Warm salt water gargles may help to soothe the throat *Throat Lozenges? *Warm fluids like tea with honey may help to soothe the throat? *Sleep elevated *Humidifier/Vaporizer Your throat swab was sent for culture. Those results are typically sent to your primary care. Be sure to follow up in 2-3 days with your family doctor/primary care physician if no improvement so they can review those result and treat if necessary. If you don?t have a primary care doctor, I recommend you get one but in the mean time, you will have to return to a walk in clinic Follow up IMMEDIATELY for new or worsening symptoms or no Noticeable improvement over the next 48-72 hours. 911 for difficulty breathing or swallowing You were tested for today for Upper Respiratory Panel with COVID19 your test result should be back in the next 24hours, you may check your results on the [facility] Clinical Impressions Clinical Impression: URI (upper respiratory infection) Qualifiers: URI type: unspecified URI Qualified Code(s): J06.9 - Acute upper respiratory infection, unspecified Stand Alone Forms Stand Alone Forms: Work/School Release Instructions Patient Instructions: Sore Throat, DI for Fever (Symptom) -- Adult Discharge ED Provider: July Medeiros [facility] [place] HPI General Stated complaint: congestion, body aches, BARNETT, sore throat, fever Mode of Arrival: Ambulatory Source of Information: Patient Limitations: No Limitations Time Seen by Provider: 12/28/23 09:13 Description of Symptoms (Recalled from Triage Doc. by RN): PATIENT C/O FEVER, SORE THROAT, HEADACHE, BODY ACHES, RUNNY NOSE AND CONGESTION SINCE FRIDAY NIGHT HEENT Symptoms (Recalled from RN notes): Yes Resp Symptoms (Recalled from RN notes): No Skin Symptoms (Recalled from RN notes): No MS Symptoms (Recalled from RN notes): No Functional Status (Recalled from RN notes): WNL History of Present Illness Provider Complaint: Patient states that he started feeling bad on Friday States that he has been having sore throat, fever, chills, body aches, headache and runny nose States that he has continued to feel bad over the weekend and this morning he still had a little fever so he came in to get checked Related Data Previous Rx's Medication Instructions Recorded atorvastatin 40 mg tablet 40 mg PO HS #30 tabs 10/23/19 furosemide 40 mg tablet 40 mg PO DAILY #30 tabs 10/23/19 spironolactone 25 mg tablet 25 mg PO DAILY #30 tabs 10/23/19 aspirin 81 mg tablet,delayed See Rx Instructions .Route 10/25/19 release .COMPLEX #90 tabs Allergies Allergy/AdvReac Type Severity Reaction Status Date / Time No Known Allergies Allergy Verified 10/15/19 11:54 Worker's Comp Is this a Worker's Comp case?: No [facility] Disclaimer: The information contained in this section may have been updated after the patient was seen, as this information can be updated by other users. Medical History (Updated 12/28/23 @ 09:26 by July Medeiros APRN) Dyspnea CAD (coronary artery disease) Abnormal EKG Diastolic dysfunction Sinus tachycardia Social History Smoking Status: Never smoker alcohol intake: never substance use type: denies use current occupational status: employed Travel in the last 8 weeks: Inside the [place] household members: spouse housing: house caffeine: Yes ROS Obtained: Yes All systems reviewed & no additional complaints except as docu mented and Yes Systems reviewed as appropriate & no additional complaints except as documented Constitutional Constitutional: Reports system reviewed and no additional complaints, except as documented, Reports as per HPI, Reports body ache, Reports chills, Reports fever(s) and Reports headache(s) ENT Ears, Nose, Mouth, and Throat: Reports system reviewed and no additional complaints, except as documented, Reports as per HPI, Reports headache(s) and Reports sore throat Cardiovascular Cardiovascular: Reports system reviewed and no additional complaints, except as documented and Reports as per HPI Respiratory Respiratory: Reports system reviewed and no additional complaints, except as documented and Reports as per HPI Gastrointestinal Gastrointestingal: Reports system reviewed and no additional complaints, except as documented and as per HPI Neurologic Neurologic: Reports headache(s) Physical Exam General General appearance: alert and in no apparent distress ENT ENT exam: Present mucous membranes moist Expanded ENT Exam Nose exam: Absent sinus tenderness Throat exam: Present tonsillar erythema Respiratory Respiratory exam: Present normal lung sounds bilaterally; Absent respiratory distress or wheezes Cardiovascular Cardiovascular exam: Present regular rate, normal rhythm and normal heart sounds Neurological Exam Neurological exam: Present alert, oriented X3 and normal gait Medical Decision Making Dashawn Inquiry Pt receiving controlled substance: No Dashawn was queried for this patient: No Vital Signs: 12/28/23 09:05 Temperature 100.8 F H Temperature Source Oral Pulse Rate [Left Brachial] 86 Respiratory Rate 20 Blood Pressure [Left Arm] 113/74 Blood Pressure Mean [Left Arm] 87 Blood Pressure Source [Left Arm] Automatic Cuff Blood Pressure Position [Left Arm] Sitting 02 Sat by Pulse Oximetry 97 Oxygen Delivery Method Room Air Lab Data Lab results reviewed: Yes I reviewed the patient's lab results.
[2023-12-28 09:29] LABS: UTC Influenza A Antigen Negative (Negative); UTC Influenza B Antigen Negative (Negative); UTC Strep Screen (Rapid) Negative (Negative)
[2023-12-28 09:30] VITALS: BP 113/74; PULSE 86; RESP 20; TEMP 38.2; O2SAT 97
[2023-12-28 09:46] LABS: Adenovirus,PCR Not Detected (NotDetected); Coronavirus 229E Not Detected (NotDetected); Coronavirus NL63 Not Detected (NotDetected); Coronavirus OC43 Not Detected (NotDetected); Coronovirus HKU1,PCR Not Detected (NotDetected); Human Metapneumovirus Not Detected (NotDetected); Influenza A, PCR Not Detected (NotDetected); Influenza AH1, 2009 Not Detected (NotDetected); Influenza AH1, PCR Not Detected (NotDetected); Influenza AH3,PCR Not Detected (NotDetected); Influenza B, PCR Not Detected (NotDetected); Parainfluenza 1, PCR Not Detected (NotDetected); Parainfluenza 2, PCR Not Detected (NotDetected); Parainfluenza 3, PCR Not Detected (NotDetected); Parainfluenza 4, PCR Not Detected (NotDetected); Respiratory Syncytial Virus Not Detected (NotDetected); Rhinovirus/Enterovirus Not Detected (NotDetected)
[2023-12-28 11:14] LABS: Coronavirus 19, PCR Detected (NotDetected)
== END 2023-12-28 09:42 | disposition home or self-care (01) ==
PROVIDERS: Emergency Provider Nurse Practitioner; PCP Internal Medicine
DX: J06.9 Acute upper respiratory infection, unspecified (principal); R50.9 Fever, unspecified; R07.0 Pain in throat; R51.9 Headache, unspecified; J34.89 Other specified disorders of nose and nasal sinuses; I25.10 Atherosclerotic heart disease of native coronary artery without angina pectoris
CPT/HCPCS: 87632; 87635; 87804; 87880; 99204; 99212; G0463

== ENCOUNTER 2025-09-14 08:34 | Outpatient (CLI) | payer BC, SELFPAY ==
[2025-09-14 16:14] LABS: Coronavirus 19, PCR Not Detected (NotDetected); Influenza A, PCR Not Detected (NotDetected); Influenza B, PCR Not Detected (NotDetected)
== END 2025-09-14 23:59 ==
LOC: LAB.DROPOF 09-16 08:35
PROVIDERS: PCP Internal Medicine; Visit Provider Student in an Organized Health Care Education/Training Program
DX: R52 Pain, unspecified (principal)
CPT/HCPCS: 87636